=== PATIENT | female | born 1990 | race Caucasian/White ===

== ENCOUNTER 2016-04-26 18:51 | Emergency (ER) | payer OTHER ==
[2016-04-26] MEDS ORDERED: SODIUM CHLORIDE 0.9% 1,000 ML IV ONE (19:29)
== END 2016-04-26 20:56 | disposition home or self-care (01) ==
DX: R42 Dizziness and giddiness (principal); D72.829 Elevated white blood cell count, unspecified

== ENCOUNTER 2016-08-14 08:15 | Emergency (ER) | payer OTHER ==
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
--- NOTE | 2016-08-14 10:02 | XRAY Preliminary Report ---
Exam: XR Mandible Bilat IMPRESSION: Normal mandible radiography. [facility] SITE ID: [id number]
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
[2016-08-14 10:58] VITALS: BP 122/74
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
== END 2016-08-14 10:50 | disposition home or self-care (01) ==
LOC: ED 08:15
DX: R68.84 Jaw pain (principal); M54.2 Cervicalgia; V40.9XXA Unspecified car occupant injured in collision with pedestrian or animal in traffic accident, initial encounter; R03.0 Elevated blood-pressure reading, without diagnosis of hypertension; Z88.8 Allergy status to other drugs, medicaments and biological substances
CPT/HCPCS: 70110; 93882; 99283

== ENCOUNTER 2016-09-20 04:44 | Emergency (ER) | payer OTHER ==
[2016-09-20 04:48] VITALS: BP 117/61
[2016-09-20] MEDS ORDERED: HYDROcod/ACETAM 5/325 MG TABLET PO STA (05:31)
[2016-09-20] MEDS ORDERED: AMOX/CLAV 875 MG/125 MG TABLET PO STA (05:32)
[2016-09-20] MEDS ORDERED: HYDROcod/ACETAM 5/325 MG TABLET ONE (05:37)
[2016-09-20] MEDS ORDERED: AMOX/CLAV 875 MG/125 MG TABLET PO ONE (05:37)
--- NOTE | 2016-09-20 06:12 | ED Physician Documentation ---
History of Present Illness - Stated complaint Stated Complaint: R EAR PX - Chief complaint Chief Complaint: Heent - Additonal information Additional information: Patient is a 25-year-old female with a history of previous otitis media who presents with a complaint of acute onset of right-sided ear pain and preceded by couple days of URI symptoms. She woke up earlier this evening with severe pain in her right ear. This pain is worse when she bites and chews. She has had mild nasal congestion otherwise no throat pain. There is no fever or chills. She has not had any cough or shortness of breath. Review of systems: For pertinent positive and negatives in the review of systems please see history of present illness. Otherwise all other systems have been reviewed and are negative. Dragon disclaimer: Parts of this medical record were created using voice recognition technology. Because of the inherent limitations of this system occasional same sounding word substitutions do occur and persist despite proofreading. Please read the document for context. Review of Systems Constitutional: denies: Fever, Chills Ears: reports: Loss of hearing. denies: Foreign body Cardiac: denies: Chest pain / pressure, Palpitations Respiratory: denies: Dyspnea, Cough PD PAST MEDICAL HISTORY - Past Medical History Past Medical History: Yes Psych: Depression, Anxiety Other Past Medical History: frequent earaches - Past Surgical History Past Surgical History: Yes General: Cholecystectomy, Appendectomy - Present Medications Home Medications: Ambulatory Orders Medication Instructions Recorded Confirmed Cyclobenzaprine [Flexeril] 10 mg PO TID PRN #20 tablet 08/14/16 Amox/Clav 875/125 [Augmentin] 1 each PO Q12H #14 tablet 09/20/16 oxyCODONE/ACET 5/325 [Percocet 5 1 each PO Q4-6H PRN #16 tablet 09/20/16 mg/325 mg] - Allergies Allergies/Adverse Reactions: Allergies Allergy/AdvReac Type Severity Reaction Status Date / Time aspirin Allergy Edema Verified 09/20/16 04:48 ibuprofen Allergy Edema Verified 09/20/16 04:48 - Social History Does the pt smoke?: No Smoking Status: Never smoker Does the pt drink ETOH?: No Does the pt have substance abuse?: No - Immunizations Immunizations are current?: Yes - POLST Patient has POLST: No PD ED PE NORMAL - General General: Alert and oriented X 3, Well developed/nourished, Other (Mild distress secondary to ear pain) - HEENT HEENT: Atraumatic, PERRL - Neck Neck: No bony TTP - Cardiac Cardiac: RRR. No: No murmur, No gallop, No rub - Respiratory Respiratory: No respiratory distress, Clear bilaterally - Abdomen Abdomen: Normal bowel sounds - Extremities Extremities: No deformity, No tenderness to palpate - Neuro Neuro: Alert and oriented X 3 - Psych Psych: Normal mood, Normal affect Results - Vitals Vitals: Vital Signs - 24 hr 09/20/16 04:47 Temperature 36.8 C Heart Rate 82 Respiratory 18 Rate Blood Pressure 117/61 O2 Saturation 97 Oxygen O2 Source Room air PD MEDICAL DECISION MAKING - ED course Complexity details: reviewed old records, reviewed results ED course: Patient is otherwise healthy 25-year-old female presents with right-sided ear pain preceded by a couple days of URI symptoms. On examination the right tympanic membrane is bulging. The tympanic membrane may be scarred or perhaps there is pus behind it there is a white area seen on otoscopy. The patient was given oral analgesics here and was started on Augmentin. There is no evidence of otitis externa and otherwise her ear nose and throat are normal. Disposition: To home Clinical impression: 1. Acute otitis media-supportive, Right ear Departure - Departure Clinical Impression: Otitis media Qualifiers: Otitis media type: suppurative Laterality: right Chronicity: acute Recurrence: recurrent Spontaneous tympanic membrane rupture: without spontaneous rupture Qualified Code(s): H66.004 - Acute suppurative otitis media without spontaneous rupture of ear drum, recurrent, right ear Condition: Good Instructions: ED Otitis Media Acute Adult Follow-Up: your,physician [Other] Prescriptions: Amox/Clav 875/125 [Augmentin] 1 each PO Q12H #14 tablet oxyCODONE/ACET 5/325 [Percocet 5 mg/325 mg] 1 each PO Q4-6H PRN #16 tablet PRN Reason: Pain Forms: Activity restrictions
== END 2016-09-20 05:53 ==
LOC: ED 04:44
DX: H66.004 Acute suppurative otitis media without spontaneous rupture of ear drum, recurrent, right ear (principal)
CPT/HCPCS: 99283; A9270